=== PATIENT | female | born 1970 | race Caucasian/White ===

== ENCOUNTER → 2019-12-09 | Outpatient (CLI) | payer MEDICAID ==
--- NOTE | 2019-12-09 13:51 | RAD ---
4 radiograph left shoulder Indication: PAIN IN LEEFT SHOULDER Comparison: None. Impression: A.C. and glenohumeral joint alignment normal without acute fracture or dislocation. Mild to moderate AC joint osteoarthritis. Minimal glenohumeral joint osteoarthritis. MRI could better evaluate as clinically indicated. Electronically signed by: Scottie Yates MD 12/09/2019 1:49 PM CDT
== END ==
LOC: RAD 08:25
PROVIDERS: ATTEND Orthopaedic Surgery
DX: M19.012 Primary osteoarthritis, left shoulder (principal)

== ENCOUNTER → 2020-02-09 | Outpatient (CLI) | payer MEDICAID ==
--- NOTE | 2020-02-09 14:18 | MRI ---
Study: MRI of the Left Shoulder. Indication: ROTATOR CUFF SYNDROME LEFT Technique: Multiplanar, multi sequence MRI of the left shoulder was obtained without intravenous contrast. Comparison: None. Findings: Mild AC joint osteoarthritis. Type I acromion. Mild lateral downsloping of the acromion. High-grade supraspinatus and infraspinatus tendinosis with scattered low-grade interstitial fissuring of the insertional and critical zone fibers fibers of the supraspinatus tendon and anterior margin infraspinatus tendon. Subscapularis and teres minor tendon intact. Grade 1 fatty infiltration rotator cuff musculature. Long head biceps tendon intact. Free edge truncation throughout the superior labrum and posterior labrum with suspected subtle undersurface tearing at the base of the superior labrum. No acute fracture or advanced glenohumeral catheter cartilage loss. Tiny joint effusion. No acute fracture. Impression: High-grade supraspinatus and infraspinatus tendinosis with scattered interstitial fissuring throughout the both tendons. Grade 1 fatty infiltration rotator cuff musculature. Free edge truncation superior labrum and posterior labrum with subtle undersurface tearing of the superior labrum. Tiny glenohumeral joint effusion. Mild AC joint osteoarthritis. Electronically signed by: Scottie Yates MD 02/09/2020 2:16 PM CDT
== END ==
LOC: MRI 13:00
PROVIDERS: ATTEND Orthopaedic Surgery
DX: M75.92 Shoulder lesion, unspecified, left shoulder (principal); S43.432A Superior glenoid labrum lesion of left shoulder, initial encounter; M62.89 Other specified disorders of muscle; M25.412 Effusion, left shoulder